=== PATIENT | male | born 1985 | race Caucasian/White ===

== ENCOUNTER 2017-01-28 14:16 | Emergency (ER) | payer SELFPAY ==
[2017-01-28 14:21] VITALS: BP 140/97
[2017-01-28] MEDS ORDERED: HYDROCODONE/ACETAMINOPHEN 5-325 MG 6 TAB/DSPK PO PRN ×2 (14:55→16:26)
--- NOTE | 2017-01-28 14:56 | ER Document Report ---
ED Medical Screen (RME) - General Chief Complaint: Testicular Pain Stated Complaint: TESTICAL PAIN Time Seen by Provider: 01/28/17 14:53 Mode of Arrival: Ambulatory Information source: Patient Notes: This is a 31-year-old man that presents to the emergency room with left testicle pain since last night. Patient states it is very tender to the touch. He denies any fever, chills, nausea, vomiting. Patient denies any penile discharge. Patient is and his has not had any symptoms. Patient states that the left testicle is very tender to the touch but if he sits in a right position, there is no pain. TRAVEL OUTSIDE OF THE [place] IN LAST 30 DAYS: No - Related Data Allergies/Adverse Reactions: Penicillins Allergy (Verified 01/28/17 14:20) Past Medical History Renal/ Medical History: Denies: Hx Peritoneal Dialysis Physical Exam - Vital signs Vitals: Temp Pulse Resp BP Pulse Ox 98.0 F 81 16 140/97 H 98 01/28/17 14:20 01/28/17 14:20 01/28/17 14:20 01/28/17 14:20 01/28/17 14:20 Course - Vital Signs Vital signs: Temp Pulse Resp BP Pulse Ox 98.0 F 81 16 140/97 H 98 01/28/17 14:20 01/28/17 14:20 01/28/17 14:20 01/28/17 14:20 01/28/17 14:20
[2017-01-28] MEDS ORDERED: HYDROCODONE/ACETAMINOPHEN 5-325 MG TABLET PO ONE (14:59)
--- NOTE | 2017-01-28 15:18 | ER Document Report ---
ED GI/ - General Chief Complaint: Testicular Pain Stated Complaint: TESTICAL PAIN Time Seen by Provider: 01/28/17 14:53 Mode of Arrival: Ambulatory Information source: Patient Notes: patient Mónica 31-year-old male who presents to the ER today For left testicular pain that began a few days ago. Patient states that he was trying to make an appointment with his primary care provider but cannot wait that long as the pain was too much today. he denies any dysuria,Swelling, redness, states that he can pinpoint exactly in the testicle where it hurts, states that it does radiate up into the left abdomen slightly. He denies any fevers or chills. TRAVEL OUTSIDE OF THE [place] IN LAST 30 DAYS: No - Related Data Allergies/Adverse Reactions: Penicillins Allergy (Verified 01/28/17 14:20) Past Medical History - General Information source: Patient - Social History Smoking Status: Never Smoker Chew tobacco use (# tins/day): No Frequency of alcohol use: Occasional Drug Abuse: None Family History: Reviewed & Not Pertinent - Past Medical History Cardiac Medical History: Reports: Hx Hypertension Renal/ Medical History: Denies: Hx Peritoneal Dialysis Psychiatric Medical History: Reports: Hx Attention Deficit Hyperactivity Disorder Review of Systems - Review of Systems Constitutional: No symptoms reported EENT: No symptoms reported Cardiovascular: No symptoms reported Respiratory: No symptoms reported Gastrointestinal: No symptoms reported Genitourinary: No symptoms reported Male Genitourinary: See HPI Musculoskeletal: No symptoms reported Skin: No symptoms reported Hematologic/Lymphatic: No symptoms reported Neurological/Psychological: No symptoms reported Physical Exam - Vital signs Vitals: Temp Pulse Resp BP Pulse Ox 98.0 F 81 16 140/97 H 98 01/28/17 14:20 01/28/17 14:20 01/28/17 14:20 01/28/17 14:20 01/28/17 14:20 - Notes Notes: PHYSICAL EXAMINATION: GENERAL: Well-appearing and in no acute distress. HEAD: Atraumatic, normocephalic. EYES: Pupils equal round and reactive to light, extraocular movements intact, sclera anicteric, conjunctiva are normal. NECK: Normal range of motion, supple without lymphadenopathy LUNGS: CTAB and equal. No wheezes rales or rhonchi. HEART: Regular rate and rhythm without murmurs ABDOMEN: Soft, No inguinal hernia noted, no tenderness. No guarding, no rebound BACK: no vertebral tenderness, normal ROM GI/: no CVA tenderness, no edema or erythema to testicles, minimally tender to left testicle EXTREMITIES: Normal range of motion, no pitting edema. No cyanosis. NEUROLOGICAL: Cranial nerves grossly intact. Normal sensory/motor exams. PSYCH: Normal mood, normal affect. SKIN: Warm, Dry, normal turgor, no rashes or lesions noted Course - Re-evaluation Re-evalutation: 01/28/17 17:01 Ultrasound of the scrotum reveals a varicocele on the left, no other acute pathology. Urinalysis is completely clear today. Patient to follow-up with urology, I did give him the information and he called to make an appointment before leaving today. - Vital Signs Vital signs: Temp Pulse Resp BP Pulse Ox 98.0 F 81 16 140/97 H 97 01/28/17 14:20 01/28/17 14:20 01/28/17 14:20 01/28/17 14:20 01/28/17 14:20 Discharge - Discharge Clinical Impression: Varicocele present on ultrasound of scrotum, Testicular pain, left Condition: Stable Disposition: HOME, SELF-CARE Additional Instructions: Return immediately for any new or worsening symptoms. Follow up with primary care provider, call tomorrow to make followup appointment. Follow up with urologist if symptoms do not resolve in 7 days. [facility] [place] [facility] [address] [place], [place] [phone] [place] [facility] [facility]. [place], [place] [phone] Forms: Return to Work
[2017-01-28 16:05] LABS: APPEARANCE,URINE SLIGHTLY-CLOUDY; BILIRUBIN,URINE NEGATIVE (NEGATIVE); GLUCOSE, URINE NEGATIVE (NEGATIVE); KETONES,URINE NEGATIVE (NEGATIVE); LEUKOCYTE ESTERASE,URINE NEGATIVE (NEGATIVE); NITRITE,URINE NEGATIVE (NEGATIVE); PROTEIN,URINE NEGATIVE (NEGATIVE); URINE SPECIFIC GRAVITY 1.026; UROBILINOGEN,URINE NEGATIVE mg/dL (<2.0)
--- NOTE | 2017-01-28 16:06 | RADIOLOGY REPORT (SQ) ---
EXAM DESCRIPTION: U/S SCROTUM W/DOPPLER COMPLETED DATE/TIME: 01/28/2017 3:44 pm REASON FOR STUDY: left testicle pain COMPARISON: None. TECHNIQUE: Static and realtime stewart scale imaging of the scrotum and testes. Selected color Doppler and spectral images recorded to document blood flow. LIMITATIONS: None. FINDINGS: RIGHT: TESTICLE: Normal size, 4 x 3.9 x 2.3 cm. Normal echotexture. Normal blood flow. No mass. EPIDIDYMIS: Normal. HYDROCELE OR VARICOCELE: No. HERNIA OR EXTRA-TESTICULAR MASS: No. OTHER: No other significant finding. LEFT: TESTICLE: Normal size, 4.7 x 2.9 x 2.3 cm. Normal echotexture. Normal blood flow. No mass. EPIDIDYMIS: Normal. HYDROCELE OR VARICOCELE: Varicoceles are associated with the inferior pole, and measure 3.8 and 3.5 m m. HERNIA OR EXTRA-TESTICULAR MASS: No. OTHER: No other significant finding. IMPRESSION: Varicoceles on the left with no acute abnormality in the scrotum. TECHNICAL DOCUMENTATION: JOB ID: [id number]- All Rights Reserved
[2017-01-28 17:57] LABS: CHLAM PCR NOT DETECTED (NOT DETECT)
== END 2017-01-28 16:53 | disposition home or self-care (01) ==
LOC: ER 14:16
DX: I86.1 Scrotal varices (principal); N50.812 Left testicular pain; R10.12 Left upper quadrant pain
CPT/HCPCS: 76870; 81001; 87491; 87591; 93976; 99284